=== PATIENT | male | born 1960 | race Caucasian/White ===

== ENCOUNTER 2022-06-19 12:29 | Outpatient (CLI) | payer BC, SELFPAY ==
--- NOTE | ~2022-06-19 | MR_ITS ---
MRI of the lumbar spine Clinical History: Back pain Technique: Axial T2-weighted images, and sagittal T1-weighted, T2-weighted, and T2 fat-sat images wer e acquired. Findings: There is no fracture in the lumbar spine. Minimal grade 1 retrolisthesis of L4 over L5 note d. There is reactive marrow edema about the L4-L5 disc space due to underlying severe degenerative di sc disease. At L1-L2, there is no disc bulge or herniation. There is mild facet arthropathy. No spinal canal sten osis or neural foraminal narrowing. At L2-L3, there is no disc bulge or herniation. There is facet arthropathy. No spinal canal stenosis or neural foraminal narrowing. At L3-L4, there is mild disc bulge and facet arthropathy. There is moderate thecal sac compression/sp inal canal stenosis. There is moderate bilateral neural foraminal narrowing. At L4-L5, there is diffuse disc bulge and possible superimposed posterior disc protrusion. Facet arth ropathy also contributes to severe spinal canal stenosis/thecal sac compression at this level. There is severe right neural foraminal narrowing and moderate to severe left neural foraminal narrowing. At L5-S1, there is disc bulge and facet arthropathy. No spinal canal stenosis. There is severe left n eural foraminal narrowing. Right neural foramen is minimally narrowed. Paravertebral soft tissues are unremarkable. Impression: Severe degenerative spondylosis at L4-L5 and L3-L4, as detailed above. Severe left neural foraminal narrowing at L5-S1. Minimal grade 1 retrolisthesis of L4 over L5. Reviewed, dictated and finalized at [facility]. Impression: Severe degenerative spondylosis at L4-L5 and L3-L4, as detailed above. Severe left neural foraminal narrowing at L5-S1. Minimal grade 1 retrolisthesis of L4 over L5.
== END 2022-06-19 12:30 ==
LOC: MICIMG 12:31
PROVIDERS: PCP Neurological Surgery; Visit Provider Nurse Practitioner Adult Health
DX: M47.896 Other spondylosis, lumbar region (principal)
CPT/HCPCS: 72148

== ENCOUNTER 2022-06-26 09:16 | Outpatient (CLI) | payer BC, SELFPAY ==
--- NOTE | 2022-06-26 11:00 | NEURO_ITS ---
Impression: # Complains of numbness of lower extremities over 2 year duration. # Asymmetrical motor and sensory neuropathy. # Needle/EMG exam neurogenic changes noted although no active fibrillations. # Clinical correlation recommended. Motor Nerve Conduction Lower Extremities Peroneal Nerve Conduction Velocity (m/sec) Terminal Latency (msec) Response Voltage(mV) Popliteal space-Ankle Ankle Extensor Dig Brevis Popliteal space Ankle Right 39 5.8 1 1 Left 40 5.6 1 1 Tibial Nerve Conduction Velocity (m/sec) Terminal Latency (msec) Response Voltage(mV) Popliteal space-Ankle Ankle-Extensor Dig Brevis Popliteal space Ankle Right 31 5.7 2 1 Left 32 5.5 1 1 F-waves Peroneal Nerve (ms) Tibial Nerve (ms) Right 64.0 55.8 Left NR 65.4 Sensory Nerve Conduction Lower Extremities Sural Nerve Stimulation Terminal Latency (msec) Ankle Response Voltage (uV) Ankle Response Velocity (m/sec) Right 4.5 7 36 Left NR NR NR Superficial Peroneal Nerve Stimulation Terminal Latency (msec) Ankle Response Voltage (uV) Ankle Response Velocity (m/sec) Right NR NR NR Left 4.5 21 36 Left Right Muscles Examined Fibrillation Fasciculation Scarcity Voltage Duration Left Right Left Right Left Right Left Right Left Right X X Ant Tibialis Reduced Reduced Decreased Decreased >12ms >12ms X X Gastroc Reduced Reduced Decreased Decreased >12ms >12ms X X Fibularis Long Reduced Reduced Decreased Decreased >12ms >12ms X X Flex Dig Long Reduced Reduced Decreased Decreased >12ms >12ms X X Ext Dig Brev Reduced Reduced Decreased Decreased >12ms >12ms Abd Hallucis X X Quadriceps Reduced Reduced Decreased Decreased >12ms >12ms Paraspinals MTDD
== END 2022-06-26 09:17 | disposition home or self-care (01) ==
PROVIDERS: PCP Neurological Surgery; Visit Provider Neurological Surgery
DX: R20.0 Anesthesia of skin (principal)
CPT/HCPCS: 95886; 95910

== ENCOUNTER 2022-06-30 14:25 | Outpatient (CLI) | payer BC, SELFPAY ==
--- NOTE | ~2022-06-30 | CT_ITS ---
EXAMINATION: CTA abdomen pelvis DATE: 06/30/2022 15:29 INDICATION: Abdominal aortic aneurysm without rupture. TECHNIQUE: Computed tomographic angiography (CTA) of the abdomen and pelvis was performed with 100 mL Omnipaque-350 intravenous contrast. Automated exposure control and iterative reconstruction techniqu e were employed. The dose-length product was 952.45 mGy-cm. Maximum intensity projection 3D-reconstru ctions of the aorta and other arteries were constructed by the technologist on a separate workstation . COMPARISON: None. FINDINGS: The visualized portions of the lung bases demonstrate mild atelectasis. Calcified left lung nodules are consistent with old granulomatous disease. No pleural effusion. The heart size is normal . No pericardial effusion. The liver, gallbladder, spleen, are normal. There is an 11 mm cystic lesio n in the head of the pancreas. The adrenal glands and kidneys are normal. The prostate is mildly enla rged. There is diverticulosis of the colon without evidence of diverticulitis. There are no dilated l oops of bowel. The appendix is normal. There are no pathologically enlarged lymph nodes. There is no free intraperitoneal fluid. 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 There is a 3.9 cm fusiform aneurysm of infrarenal a ngozi. There is no significant stenosis of celiac axis, superior mesenteric artery, or the right renal artery. 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 There is severe lumbar spondylosis. IMPRESSION: 1. 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 2. 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 3. 11 mm cystic lesion of the head of the pancreas. The differential diagnosis includes pseudocyst, i ntraductal papillary mucinous neoplasm (IPMN), mucinous cystic neoplasm (MCN), serous cystadenoma, an d neuroendocrine tumor. Abdomen MRI without and with contrast is recommended in one year. Reviewed, dictated and finalized at location [facility]. IMPRESSION: 1. 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 2. 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 3. 11 mm cystic lesion of the head of the pancreas. The differential diagnosis includes pseudocyst, intraductal papillary mucinous neoplasm (IPMN), mucinous c ystic neoplasm (MCN), serous cystadenoma, and neuroendocrine tumor. Abdomen MRI without and with contrast is recommended in one year.
[2022-06-30 15:17] LABS: Estimated Glomerular Filt Rate > 60
== END 2022-06-30 14:26 ==
PROVIDERS: PCP Internal Medicine
DX: I71.40 Abdominal aortic aneurysm, without rupture, unspecified (principal); K86.9 Disease of pancreas, unspecified
CPT/HCPCS: 74174; Q9967

== ENCOUNTER → 2022-09-01 11:10 | Outpatient (CLI) | payer BC, SELFPAY ==
--- NOTE | ~2022-09-01 | CT_ITS ---
EXAMINATION: CTA abdomen pelvis DATE: 09/01/2022 11:45 INDICATION: Abdominal aortic aneurysm. TECHNIQUE: Computed tomographic angiography (CTA) of the abdomen and pelvis was performed without and with 100 mL Omnipaque-350 intravenous contrast. Automated exposure control and iterative reconstruct ion technique were employed. The dose-length product was 2027.90 mGy-cm. Maximum intensity projection 3D-reconstructions of the aorta and other arteries were constructed by the technologist on a [employer] workstation. COMPARISON: CT abdomen and pelvis 06/30/2022 FINDINGS: The visualized portions of the lung bases demonstrate calcified pulmonary nodules, consiste nt with old granulomatous disease. There is minimal atelectasis bilaterally. No pleural effusion. The heart size is normal. No pericardial effusion. The liver, gallbladder, spleen, adrenal glands, and k idneys are normal. There is an 11 mm cystic lesion that of the pancreas. There is a 3.8 cm eccentric fusiform aneurysm of abdominal aorta. There is a stent graft in the abdominal aorta and the common il iac arteries in expected position. No endoleak. There is total occlusion of proximal inferior mesente robert artery. There is mild stenosis of celiac axis and superior mesenteric artery. Again seen is a 12 mm dissecting aneurysm at the origin of left renal artery. There is fat stranding superficial to the common femoral arteries, consistent with recent intervention. There is diverticulosis of the colon wi thout evidence of diverticulitis. There are no dilated loops of bowel. The appendix is normal. There are no pathologically enlarged lymph nodes. There is no free intraperitoneal fluid. The prostate is m ildly enlarged. There is severe lower lumbar spondylosis. There is mild thoracic spondylosis. IMPRESSION: 1. 3.8 cm eccentric fusiform aneurysm of infrarenal aorta with stent graft in expected position. 2. 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 3. 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 4. Stable 11 mm cystic lesion in the head of the pancreas. The differential diagnosis includes pseudo cyst, intraductal papillary mucinous neoplasm (IPMN), mucinous cystic neoplasm (MCN), serous cystaden karlene, and neuroendocrine tumor. Abdomen MRI without and with contrast is recommended in one year. Reviewed, dictated and finalized at location A. IMPRESSION: 1. 3.8 cm eccentric fusiform aneurysm of infrarenal aorta with stent graft in e xpected position. 2. 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 3. 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 4. Stable 11 mm cystic lesion in the head of the pancreas. The differential kleber gnosis includes pseudocyst, intraductal papillary mucinous neoplasm (IPMN), muc inous cystic neoplasm (MCN), serous cystadenoma, and neuroendocrine tumor. Abdo men MRI without and with contrast is recommended in one year.
[2022-09-01 11:31] LABS: Estimated Glomerular Filt Rate > 60
== END ==
DX: I71.40 Abdominal aortic aneurysm, without rupture, unspecified (principal)
CPT/HCPCS: 74174; Q9967

== ENCOUNTER 2022-10-09 08:01 | Outpatient (CLI) | payer SELFPAY ==
--- NOTE | 2022-10-09 08:20 | ECG_ITS ---
Measurements Intervals [place] Rate: 75 P: 70 AR: 189 QRS: 42 QRSD: 96 T: 41 QT: 368 QTc: 411 Interpretive Statements SINUS RHYTHM CANNOT RULE OUT SEPTAL INFARCT, AGE INDETERMINATE BASELINE ARTIFACT- II, III, AVF ABNORMAL ECG NO PREVIOUS ECG AVAILABLE FOR COMPARISON Electronically Signed On 10-09-2022 8:37:24 CDT by Adebayo Loo D.O.
[2022-10-09 09:01] LABS: Hematocrit 42.2 % (42.0-52.0); Hemoglobin 14.2 g/dL (14.0-18.0); Mean Corpuscular HGB Conc 33.6 g/dl (32-36); Mean Corpuscular Hemoglobin 35.1 pg (26-34); Mean Corpuscular Volume 104.2 fl (80-100); Platelet Count Result 182 k/mm3 (150-375); Red Blood Count 4.05 M/mm3 (4.6-6.20); Red Cell Distribution Width 13.6 % (11.5-14.5); White Blood Count 5.9 K/mm3 (4.5-10.0)
[2022-10-09 09:15] LABS: Anion Gap 6 mmol/L (8-16); Blood Urea Nitrogen 18 mg/dL (9-20); Calcium 9.2 mg/dL (8.4-10.2); Carbon Dioxide 27 mmol/L (22-30); Chloride 104 mmol/L (98-107); Estimated Glomerular Filt Rate > 60; Glucose 96 mg/dL (65-110); Potassium 4.6 mmol/L (3.4-5.0); Sodium 137 mmol/L (137-145)
[2022-10-09 09:17] LABS: INR 0.9
[2022-10-09 09:18] LABS: Partial Thromboplastin Time 28.4 SECONDS (22.3-36.8)
[2022-10-09 09:33] LABS: Appearance Urine Clear (Clear); Bacteria Urine None Seen /hpf; Bilirubin Urine Negative (Negative); Blood Urine Negative (Negative); Color Urine Yellow (Yellow); Glucose Urine UA Negative (Negative); Hyaline Casts Urine Present /lpf; Ketones Urine Negative (Negative); Leukocyte Esterase Ur Negative LEU/UL (Negative); Need Manual Microscopic Reviewed; Nitrate Urine Negative (Negative); Protein Urine Trace mg/dL (Negative); RBC Urine 0-2 /hpf (0-2); Specific Grav Ur 1.017 (1.001-1.035); Squamous Epithelial Cell Urine Occasional /hpf (Few); WBC Urine 0-5 /hpf
[2022-10-09 09:42] LABS: Add Urine Microscopic? YES
== END 2022-10-09 08:02 | disposition home or self-care (01) ==
PROVIDERS: Visit Provider Neurological Surgery
DX: M48.061 Spinal stenosis, lumbar region without neurogenic claudication (principal); I10 Essential (primary) hypertension; F17.210 Nicotine dependence, cigarettes, uncomplicated; Z01.818 Encounter for other preprocedural examination; R94.31 Abnormal electrocardiogram [ECG] [EKG]
CPT/HCPCS: 36415; 80048; 81001; 85027; 85610; 85730; 93005

== ENCOUNTER 2022-10-30 16:51 | Outpatient (CLI) | payer SELFPAY ==
--- NOTE | ~2022-10-30 | XR_ITS ---
EXAMINATION: XR chest 2V Exam Date/Time: 10/30/2022 17:08 CDT HISTORY: J44.9 - Chronic obstructive pulmonary disease, unspecified Comparison: None. RESULT: Lines, tubes, and devices: None. Lungs and pleura: Mild hemidiaphragm flattening. Mild bronchial cuffing. Calcified granulomas. Cardiomediastinal silhouette: Unremarkable. Other: No acute osseous or upper abdominal finding. IMPRESSION: Pulmonary opacities may represent mild bronchiolitis, as can be seen with atypical infection, asthma, aspiration, and small airways disease. Mild emphysematous change. Reviewed, dictated and finalized at location K. IMPRESSION: Pulmonary opacities may represent mild bronchiolitis, as can be seen with atypi anais infection, asthma, aspiration, and small airways disease. Mild emphysematou s change.
[2022-10-30 17:57] LABS: Hematocrit 42.7 % (42.0-52.0); Hemoglobin 14.4 g/dL (14.0-18.0); Mean Corpuscular HGB Conc 33.7 g/dl (32-36); Mean Corpuscular Hemoglobin 35.6 pg (26-34); Mean Corpuscular Volume 105.7 fl (80-100); Mean Platelet Volume 9.1 fl (7.4-10.4); Platelet Count Result 202 k/mm3 (150-375); Red Blood Count 4.04 M/mm3 (4.6-6.20); Red Cell Distribution Width 13.9 % (11.5-14.5); White Blood Count 6.1 K/mm3 (4.5-10.0)
[2022-10-30 18:11] LABS: Alanine Aminotransferase 34 U/L (6-50); Albumin Level 4.5 g/dL (3.5-5.1); Alkaline Phosphatase 49 U/L (38-126); Anion Gap 7 mmol/L (8-16); Aspartate Amino Transferase 46 U/L (17-59); Bilirubin,Total 0.7 mg/dL (0.2-1.3); Blood Urea Nitrogen 20 mg/dL (9-20); Calcium 8.9 mg/dL (8.4-10.2); Carbon Dioxide 26 mmol/L (22-30); Chloride 104 mmol/L (98-107); Estimated Glomerular Filt Rate > 60; Glucose 93 mg/dL (65-110); Potassium 4.5 mmol/L (3.4-5.0); Sodium 137 mmol/L (137-145)
[2022-10-30 18:41] LABS: Prostate Specific Antigen 1.4 ng/mL (< OR = 4.0)
[2022-10-30 19:17] LABS: Folic Acid 12.4 ng/mL (2.76->20)
[2022-11-02 17:53] LABS: Testosterone Free 74.7 pg/mL (35.0-155.0); Testosterone Total 803 ng/dL (250-1100)
[2022-11-02 19:43] LABS: GGT 81 U/L (3-70)
== END 2022-10-30 16:52 | disposition home or self-care (01) ==
PROVIDERS: PCP Family Medicine; Visit Provider Family Medicine
DX: J44.9 Chronic obstructive pulmonary disease, unspecified (principal); R91.8 Other nonspecific abnormal finding of lung field; R20.2 Paresthesia of skin; F10.10 Alcohol abuse, uncomplicated; I10 Essential (primary) hypertension; N52.9 Male erectile dysfunction, unspecified; Z12.5 Encounter for screening for malignant neoplasm of prostate
CPT/HCPCS: 36415; 71046; 80048; 80076; 82607; 82746; 82977; 84153; 84402; 84403; 84443; 85027; G0103

== ENCOUNTER 2022-11-10 08:47 | Outpatient (CLI) | payer BC, SELFPAY ==
--- NOTE | 2022-11-10 16:15 | P.PCNPFT_ITS ---
PFT Procedure Performed PFT Procedure Performed Spirometry with Pre/Post Bronchodilator Plethysmography (Lung Vol) Diffusing Cap (DLCO) Flow Vol Loop PFT Interpretation This is a pulmonary function test with pre and post-bronchodilator spirometry, plethysmography and diffusing capacity. The test was performed and results interpreted in accordance with the 2019 and 2005 ATS/ERS Task Force guidelines respectively using the Global Lung Function Initiative-2012 reference equations. Patient demonstrated good effort and cooperation. Reproducibility criteria were met. The quality of the pre bronchodilator spirometry maneuver was Grade A and post bronchodilator spirometry maneuver was Grade B. Findings: Spirometry: There is decreased maximal expiratory airflow at all lung volumes with concave expiratory flow tracing. The contour the inspiratory flow tracing is normal. The pre bronchodilator FVC is 5.31 L, 119% predicted. The pre bronchodilator FEV1 is 3.52 L, 102% predicted. The pre bronchodilator FEV1: FVC ratio 66%. The post bronchodilator FVC is 5.41 L, representing a 2% increase. The post bronchodilator FEV1 is 3.69 L, representing a 5% increase. Plethysmography: The total lung capacity is 8.71 L, 129% predicted. The functional residual capacity is 4.32 L, 123% predicted. The residual volume is 3.34 L, 153% predicted. Diffusion capacity: The diffusing capacity unadjusted for hemoglobin and carboxyhemoglobin is 24.6, 88% predicted. Diffusing capacity adjusted for alve olar volume is 3.55, 83% predicted. Impression: There is a mild obstructive abnormality with a normal FEV1 and without significant improvement after inhaling a single dose of albuterol. The increase in residual volume is consistent with air trapping from an obstructive abnormality. Hyperinflation is present as demonstrated by the increase in total lung capacity and is consistent with an obstructive abnormality. The diffusing capacity is normal. There are no prior studies for comparison
== END 2022-11-10 08:48 | disposition home or self-care (01) ==
PROVIDERS: PCP Family Medicine; Visit Provider Family Medicine
DX: J44.9 Chronic obstructive pulmonary disease, unspecified (principal); R94.2 Abnormal results of pulmonary function studies
CPT/HCPCS: 94060; 94726; 94729

== ENCOUNTER 2023-01-10 01:29 | Day surgery (SDC) | payer BC, SELFPAY ==
[2022-12-28 13:07] VITALS: BMI 35.5
--- NOTE | 2023-01-09 16:47 | PM.HPGS ---
History of Present Illness History of Present Illness Consent: Risks, benefits, and alternatives have been discussed and questions answered. Patient agrees to proceed with procedure. Chief complaint: hx colon polyps Narrative: Bhavin Etienne is a 62 year old male Referred for colon cancer screening. He has a previous history of polyps. 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) Erectile dysfunction Hypertension IBS (irritable bowel syndrome) Lumbar stenosis Paresthesia Sleep apnea Surgical History Surgical History History of lumbar laminectomy No pertinent past surgical history Family History Family History Mother Stomach cancer Daughter Anxiety Other Asthma Depression Heart disease Hypertension Social History Social History Smoking packs per day: 2 Smoking cigarettes per day: 40.0 Years smoked: 40 Smoking pack-years: 80.00 Smoking status: Current every day smoker Tobacco type: cigarettes Alcohol intake: current Drinks per week: 14 Alcohol use details: [employer] - APPROX 10/DAY Substance use: current Substance use type: marijuana Other substance usage details: daily Lack of Transportation: No Lack of Food: Never True Current Housing: I Have Housing Concerned About Future Housing: No Difficulty Paying Gas/Electric Bills: No Difficulty Paying for Meds: No Currently Unemployed: No Education: Decline to Answer Difficulty w/ Childcare or Family Care: No Living arrangements: with family Occupation/Education: occupation Spiritual care concerns: No Meds Home Medications and Allergies Home Medications Medication Instructions Recorded Confirmed Type psyllium husk 3.4 gram/5.4 gram 1 tbsp PO DAILY 05/10/22 01/10/23 History oral powder (Metamucil) naproxen sodium 220 mg tablet 220 mg PO BID PRN Pain 10/30/22 01/10/23 History albuterol sulfate 90 mcg/actuation 1 inh inhalation Q4H PRN shortness 12/01/22 01/10/23 Rx aerosol inhaler of breath or wheezing #8.5 grams fluticasone fur. 100 mcg-umeclid 1 inh inhalation DAILY #60 ea 12/01/22 01/10/23 Rx 62.5 mcg-vilant 25 mcg inhalat.powder (Trelegy Ellipta) vitamin B complex (B 1 tablet PO DAILY 12/01/22 01/10/23 History Complex-Vitamin B12 tablet) duloxetine 30 mg capsule,delayed 30 mg PO DAILY 12/28/22 12/28/22 History release (Cymbalta) Allergies Allergy/AdvReac Type Severity Reaction Status Date / Time No Known Allergies Allergy Verified 01/10/23 10:19 Exam Const: General: alert Orientation/consciousness: patient oriented x3 Resp: Auscultation: clear to auscultation bilaterally Cardio: Rhythm: regular rhythm GI: GI Palp: Yes Soft to palpation and No Tenderness to palpation present (GI) Neuro: General: patient oriented x3 Assessment and Plan Assessment and plan (1) Colon cancer screening: Code(s): Z12.11 - Encounter for screening for malignant neoplasm of colon Status: Acute Assessment and Plan: EGD with possible biopsy or dilatation or cautery.
[2023-01-10 10:21] VITALS: BP 155/94; PULSE 72; RESP 18; TEMP 36.5; O2SAT 100
[2023-01-10] MEDS: LACTATED RINGERS 1,000 ML 150 ML IV CONT (10:36)
--- NOTE | 2023-01-10 10:47 | WPDANESEPPF ---
Anes - Initial Pre Proc Eval Procedure: Operation Date: 01/10/23 11:30 Proposed Procedures p Colonoscopy - Pipe Andujar MD Date/Time: 01/10/23 10:47 Surgeon: Pipe Andujar MD Pre Op Diagnosis: hx colon polyps Patient Data Age: 62 Gender: M Height: 1.75 m Weight: 96.8 kg Last Vital Signs Temp 97.7 F 01/10/23 10:21 Pulse 72 01/10/23 10:21 Resp 18 01/10/23 10:21 BP 155/94 H 01/10/23 10:21 Pulse Ox 100 01/10/23 10:21 O2 Del Method Room Air 01/10/23 10:21 Allergies Allergy/AdvReac Type Severity Reaction Status Date / Time No Known Allergies Allergy Verified 01/10/23 10:19 Home Medications Medication Instructions Recorded Confirmed Type psyllium husk 3.4 gram/5.4 gram 1 tbsp PO DAILY 05/10/22 01/10/23 History oral powder (Metamucil) naproxen sodium 220 mg tablet 220 mg PO BID PRN Pain 10/30/22 01/10/23 History albuterol sulfate 90 mcg/actuation 1 inh inhalation Q4H PRN shortness 12/01/22 01/10/23 Rx aerosol inhaler of breath or wheezing #8.5 grams fluticasone fur. 100 mcg-umeclid 1 inh inhalation DAILY #60 ea 12/01/22 01/10/23 Rx 62.5 mcg-vilant 25 mcg inhalat.powder (Trelegy Ellipta) vitamin B complex (B 1 tablet PO DAILY 12/01/22 01/10/23 History Complex-Vitamin B12 tablet) duloxetine 30 mg capsule,delayed 30 mg PO DAILY 12/28/22 12/28/22 History release (Cymbalta) Patient hx anesthesia problems: none Family hx anesthesia problems: none Results Review: All pre-operative results and documents have been reviewed as part of the pre-operative evaluation. 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) Erectile dysfunction Hypertension IBS (irritable bowel syndrome) Lumbar stenosis Paresthesia Sleep apnea Surgical History Surgical History History of lumbar laminectomy No pertinent past surgical history Family History Family History Mother Stomach cancer Daughter Anxiety Other Asthma Depression Heart disease Hypertension Social History Social History Smoking packs per day: 2 Smoking cigarettes per day: 40.0 Years smoked: 40 Smoking pack-years: 80.00 Smoking status: Current every day smoker Tobacco type: cigarettes Alcohol intake: current Drinks per week: 14 Alcohol use details: [employer] - APPROX 10/DAY Substance use: current Substance use type: marijuana Other substance usage details: daily Lack of Transportation: No Lack of Food: Never True Current Housing: I Have Housing Concerned About Future Housing: No Difficulty Paying Gas/Electric Bills: No Difficulty Paying for Meds: No Currently Unemployed: No Education: Decline to Answer Difficulty w/ Childcare or Family Care: No Living arrangements: with family Occupation/Education: occupation Spiritual care concerns: No Anes - Eval Final PreProcedure Day of Procedure 01/10/23 10:47 Patient weight: obese Heart: regular rate and rhythm Lungs: clear to auscultation Airway: Mallampati scale class II Neurological: alert and oriented Last oral intake: >/= 8 hours ASA classification: III Emergent: no Anesthetic plan: proceed Anesthesia type and monitoring: general GIVS and standard monitoring Results Review: All pre-operative results and documents have been reviewed as part of the pre-operative evaluation. Informed Consent: The patient's anesthetic plan and its attendant risks and benefits were discussed with the patient/family/POA. Questions were solicited and answers provided to the satisfaction of the patient/family/POA.
[2023-01-10 11:14] VITALS: BP 134/91; PULSE 77; RESP 22; O2SAT 94
[2023-01-10 11:24] VITALS: BP 161/95; PULSE 76; RESP 18; O2SAT 100
[2023-01-10 11:34] VITALS: BP 160/96; PULSE 75; RESP 20; O2SAT 100
== END 2023-01-10 11:40 | disposition home or self-care (01) ==
PROVIDERS: PCP Family Medicine; Visit Provider Internal Medicine Gastroenterology
PROC: 0DJD8ZZ Inspection of Lower Intestinal Tract, Via Natural or Artificial Opening Endoscopic (ICD-10-PCS; CPT 45378; principal; 2023-01-10 11:30)
DX: Z12.11 Encounter for screening for malignant neoplasm of colon (principal); K62.1 Rectal polyp; K64.2 Third degree hemorrhoids; K57.30 Diverticulosis of large intestine without perforation or abscess without bleeding; J44.9 Chronic obstructive pulmonary disease, unspecified; I10 Essential (primary) hypertension; F41.9 Anxiety disorder, unspecified; G47.30 Sleep apnea, unspecified; Z79.51 Long term (current) use of inhaled steroids; F17.210 Nicotine dependence, cigarettes, uncomplicated; F12.90 Cannabis use, unspecified, uncomplicated; E66.9 Obesity, unspecified; Z68.31 Body mass index [BMI] 31.0-31.9, adult
CPT/HCPCS: 45380; 88305; J2704; J7120